=== PATIENT | female | born 1950 | race Two or more races ===

== ENCOUNTER 2017-05-13 10:47 | Emergency (ER) | payer OTHER ==
[~2017-05-13] VITALS: Ht 160 cm; Wt 82.7 kg
[2017-05-13 10:52] VITALS: BP 130/62
[2017-05-13] MEDS ORDERED: MOTRIN800 MG PO (11:34)
== END 2017-05-13 11:54 | disposition home or self-care (01) ==
LOC: EME 10:47
DX: S63.91XA Sprain of unspecified part of right wrist and hand, initial encounter (principal); W10.9XXA Fall (on) (from) unspecified stairs and steps, initial encounter; E78.5 Hyperlipidemia, unspecified
CPT/HCPCS: 73130; 99281; 99284